=== PATIENT | female | born 1990 | race Two or more races ===

== ENCOUNTER 2016-08-22 08:08 | Inpatient (IN) | payer OTHER ==
[2016-08-22] MEDS ORDERED: OXYTOCIN 10 UNITS/ML VIAL IM ONE (08:45)
[2016-08-22] MEDS ORDERED: LIDOCAINE Viscous 2% 15 ML UDCUP ONE (08:50)
[2016-08-22] MEDS ORDERED: MINERAL OIL 25 ML BOT ONE (08:50)
[2016-08-22] MEDS ORDERED: LIDOCAINE 1% (PRES FREE) 30 ML VIAL ONE (08:50)
[2016-08-22] MEDS ORDERED: PUMP TUBING ONE (08:50)
[2016-08-22] MEDS ORDERED: OXYTOCIN IN LR 500 ML IV ONE ×3 (08:50→15:33)
[2016-08-22 09:16] VITALS: BMI 30.8
--- NOTE | 2016-08-22 10:14 | PCMAN ---
OB Admission Note - History : 3 Term: 2 : 0 Abortions (S&E): 0 Livin EDC:: 08/22/16 Gestational Age (weeks): 40 Days (#/7): 0 Admit Cervical Dilation:: 7 Admit Cervical Effacement (%):: 80 Admit Station:: -2 Admit Presentaton:: vertex Membrane Status: Intact Labor Onset (Date): 08/22/16 Labor Onset (Time): 03:00 Contraction Frequency:: 1.5-5 minutes Heart Rate:: 125 (moderate variability, pos accels, no decels) Status:: Fetus Cat 1 EFW:: 7lbs Summary of Course:: Val is a at 40w0d presenting with active labor at term. She initiated care with [facility] at 6wks for 2 visits, and transferred to [facility] at 19 weeks for a total of 11 visits. Her course was uncomplicated. Her 20 week anatomy scan was WNL. Her initial BMI was 25 with a total WG of 33 lbs this . She passed her 1hr GTT. Her GBS status is negative. Did not have genetic testing. 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 - Labs Blood Type: O (+) positive Rubella Status: Immune GBS Status: Negative Abnormal Labs: None - Review of Systems Complete ROS is negative excpet for lower abdominal pain described as contractions. She denies LIANG, visual changes, epigastric pain. She denies LOF and vag bleeding. - Physical Exam Psych/Mental Status: Mood/Affect Appropriate, Judgment/Insight Intact Neurological: Grossly Intact, Alert, Oriented x 4 HEENT: Atraumatic Lungs: Clear to Auscultation Bilaterally, Normal Air Movement Cardiovascular: Regular Rate and Rhythm, Normal S1, Normal S2 Genitourinary: Normal Female Genitalia Rectal Exam: Deferred Extremities: Full ROM Skin: Normal Color, Warm, Dry (Fetus ROP by Leop[place]) - Problems (1) Active labor at term Status: Acute Code: [id number]/Plan: A: Undelivered IUP at 40w0d Membranes intact GBS negative Active labor Fetus Cat 1, appropriate for IA VSS Coping very well P: Patient desires unmedicated No Hx PPH or difficult delivery. Patient declined AMTSL, 10 mu IM ordered in case risk factors emerge IA per unit protocol Monitor vital signs per unit protocol Has ball in room, plans to use positions, and movement. Will increase RN and CNM hands on support as labor intensifies. Will reassess when clinically indicated. Anticipate .
--- NOTE | 2016-08-22 12:10 | PDOC36 ---
Provider Note Subject: Labor progress Note Note: S: Patient asks to be checked and evaluated for AROM. She states she is coping well. O: VS BP 130/69 HR 71 T 36.2C Fetus 120's increases auscultated with IA, no decreases Ctx coupling q 1-5 mins, lasting 60 - 120 sec, moderate to strong to palpation SVE unchanged 7/80%/-2, vertex not well-applied to cervix, ROT A: Undelivered IUP at 40w0d Membranes intact GBS negative Active labor Fetus Cat 1, appropriate for IA VSS Coping very well malsposition P: Patient desires unmedicated Patient declined AMTSL, 10 mu IM ordered in case risk factors emerge IA per unit protocol Monitor vital signs per unit protocol Slide-lying release, rebozo, lunges and abdominal lift to assist with rotation and descent of fetus. After sile lying release, back noted to be shifted more to the maternal left. Will consider AROM once fetus is in better position for descent. Will reassess when clinically indicated. Anticipate .
[2016-08-22] MEDS ORDERED: SODIUM CHLORIDE 0.9% FLUSH 10 ML ONE (15:07)
[2016-08-22] MEDS ORDERED: MISOPROSTOL 200 MCG TABLET PO ONE (15:08)
[2016-08-22] MEDS ORDERED: FENTANYL 100 MCG/2 ML VIAL IV ONE (15:08)
[2016-08-22] MEDS ORDERED: FENTANYL 100 MCG/2 ML VIAL ONE (15:11)
[2016-08-22] MEDS ORDERED: CEFAZOLIN SODIUM 2 GRAM DUPLEX 50 ML IV ONE ×2 (15:24→16:24)
[2016-08-22 15:30] LABS: HEMATOCRIT 35.9 % (37.0-47.0); HEMOGLOBIN 12.8 gm/l (12.0-16.0); MEAN CELL VOLUME 91.1 fl (81.0-99.0); MEAN CORPUSCULAR HEMOGLOBIN 32.5 pg (27.0-31.0); MEAN CORPUSCULAR HGB CONC 35.7 g/dl (33.0-37.0); RED CELL DISTRIBUTION WIDTH 13.2 % (11.5-14.5)
[2016-08-22] MEDS ORDERED: METHYLERGONOVINE MALEATE 0.2 MG/ML 1ML AMP IM ONE (15:30)
[2016-08-22] MEDS ORDERED: LANOLIN 50 APPLIC/7G TUBE TP PRN (15:58)
[2016-08-22] MEDS ORDERED: BENZOCAINE/MENTHOL 60 APPLIC/BOT TP PRN (15:58)
[2016-08-22] MEDS ORDERED: CALCIUM CARBONATE 500 MG TAB.CHEW PO PRN (15:58)
[2016-08-22] MEDS ORDERED: MAGNESIUM HYDROXIDE 30 ML UDCUP PO PRN (15:58)
[2016-08-22] MEDS ORDERED: ACETAMINOPHEN 325 MG TABLET PO PRN (15:58)
[2016-08-22] MEDS ORDERED: HYDROCODONE/ACETAMINOPHEN 5/325MG TABLET PO PRN (15:58)
[2016-08-22] MEDS ORDERED: FLU VACC 2016-17 (36MO-64Y)/PF 60 MCG/0.5 ML SYRINGE IM V ONE (16:26)
[2016-08-22] MEDS ORDERED: ACETAMINOPHEN 500 MG TABLET PO ONE (16:41)
[2016-08-22] MEDS: LACTATED RINGERS 1,000 ML IV SCH ×2 (17:09→19:14)
--- NOTE | 2016-08-22 17:31 | PCMDEL ---
Delivery Note - Labor 1st stage (hr/min):: 11hrs 10mins 2nd stage (hr/min):: 19mins 3rd stage (hr/min):: 9 mins Total (hr/min):: 11hrs 29 mins Pushed (hr/min):: 19mins - Delivery Delivery (Date): 08/22/16 Delivery (Time): 14:29 Infant Gender: Male Weight: 6 lb 15 oz Presentation: Cephalic Position: OA (to ROT) Umbilical Cord: 3 Vessel Delayed Cord Clamping:: > 3 min 1 Minute Total: 9 5 Minute Total: 9 Placenta:: grossly intact, shultze, 3VC EBL:: 780 Perineum:: intact Suture:: none Anesthesia/Meds:: none for delivery. 100mcg fentanyl for uterine sweep Length ROM:: 50min Comments:: First Stage: Val presented at 0800 this morning in active labor. Her contractions began last night around 2200 and increased their intensity at 0300. At 0800 she was 7/80%/-2. She labored well throughout the morning at 11am, SVE remained unchanged and fetus was still -2 in ROT position. Side lying release, rebozo, lunges and abdominal lifting resulted in fetus becoming much more applied to the cervix and variable from ROT to RENEE during exam. At 1339 AROM was performed with meconium stained amniotic fluid and head became well-applied, 9/100%/-1. Val continued to cope very well with labor. FHTs remained Cat 1 throughout first stage labor. Change from IA to CEFM when meconium noted on AROM. Second Stage: Val noticed increased pressure, frequency of contractions and intensity of contractions after AROM. She was noted to be complete at 1410. She pushed well in a right side-lying position, noting good descent with each contraction. FHTs were Cat2 throughout second stage for variable decels to 100s with contractions that returned quickly to baseline. Always with moderate variability. of vigorous female at 1429 OA to ROT, no nuchal cord. Anterior shoulder delivered easily with next push, body followed easily. Apgars 9,9 Weight 6lbs 15oz. Perinuem and vaginal vault inspected and found to be intact. Third Stage: 3V cord clamped and cut at 3 mins by Pedro. Placenta delivered grossly intact and Shultze 8 minutes after the with a moderate gush. Fundus massaged and more bleeding was noted. 10 mu IM Pitocin given in L thigh. Fundus massaged and found firm and below the U. With the first fundal check, a 125cc clot was expelled. 600mcg misoprostol was given and bleeding seemed stable. At next fundal check, I was called back in as RN noted another 90mL clot at this time. Uterus felt firm, below the U but deviated to the right. Straight cath was done and 30cc urine was expelled. was held by Pedro, the father , at this time. IV access was obtained, IV Pitocin was initiated. Once IV access was obtained, fundal massage was done and more bleeding noted. 100mcg fentanyl was given and a manual uterine sweep was performed with removal of 240mL of clots. 0.2mg methergine given IM to firm up lower uterine segment. After manual sweep fundus noted very firm, below the U and now midline. 2g ancef ordered x1. About 2 hours after delivery, patient had a fever of 103F, likely from SL misoprostol. 1000mg tylenol given. 1000mL fluid bolus given. Total EBL + QBL 780mL. Infant was then replaced skin to skin and initiated. Stable and bonding well. Post delivery pause done and correct.
[2016-08-22] MEDS: IBUPROFEN 800 MG TABLET PO PRN (19:33)
[2016-08-23 06:44] LABS: HEMATOCRIT 29.8 % (37.0-47.0); HEMOGLOBIN 10.6 gm/l (12.0-16.0)
[2016-08-23] MEDS: LACTATED RINGERS 1,000 ML IV SCH (07:09)
[2016-08-23] MEDS: IBUPROFEN 800 MG TABLET PO PRN ×2 (10:31→17:53)
--- NOTE | 2016-08-23 15:26 | PDOC44 ---
- Subjective Day: 1 (Stable s/p , PPH) S:sitting up , reports feeling good while up ad paulette to void, feels much better after recovery from PPH and side effects of SL misoprostol. Reports bleeding is minimal and pain is controlled with ibuprofen. She desires to go home tomorrow. Handout given and reasons to call CNM were reviewed. Reports Flatus, Reports Pain Tolerable, Reports , Reports Lochia Light, Reports Tolerating Regular Diet - Objective Temp Pulse Resp BP Pulse Ox 98.1 F 91 16 107/58 08/23/16 08:28 08/23/16 08:28 08/23/16 08:28 08/23/16 08:28 Lab Results 08/23/16 08/22/16 06:20 15:20 WBC 16.2 H RBC 3.94 L Hgb 10.6 L D 12.8 Hct 29.8 L 35.9 L Plt Count 171 08/22/16 15:20 MCH 32.5 H Current Medications Generic Name Dose Route Start Last Admin Trade Name Freq PRN Reason Stop Dose Admin Acetaminophen 325 - 650 mg 08/22/16 15:58 Tylenol PO Q4H PRN Pain (Mild) Acetaminophen/Hydrocodone Bitart 1 - 2 tab 08/22/16 15:58 [place] 5/325 PO Q4H PRN Pain (Moderate) Benzocaine/Menthol 1 applic 08/22/16 15:58 Dermoplast TP PRN PRN Patient Comfort Calcium Carbonate/Glycine 500 - 1,000 mg 08/22/16 15:58 Tums PO BID PRN Indigestion Docusate Sodium 100 mg 08/23/16 09:00 Colace PO DAILY LORA Emollient Ointment 1 applic 08/22/16 15:58 [id number] TP PRN PRN sore nipples Ibuprofen 800 mg 08/22/16 15:58 08/23/16 10:31 Motrin PO 800 mg Q6H PRN Administration Pain (Mild) Magnesium Hydroxide 30 ml 08/22/16 15:58 Milk Of Magnesia PO BEDTIME PRN Constipation Sodium Chloride 10 ml 08/22/16 15:58 Normal Saline 10ml Flush IV PRN PRN IV Flush - Physical Exam General: Afebrile (VSS) Psych/Mental Status: Mood/Affect Appropriate, Judgment/Insight Intact, Bonding Well Neurological: Grossly Intact, Alert, Oriented x 4, Normal Speech Lungs: Clear to Auscultation Bilaterally Cardiovascular: Regular Rate and Rhythm Breast: Soft, Skin intact, Nipples Intact Fundus: Firm, Midline, Below Umbilicus Lochia: Light - Problems:Assessment/Plan (1) (normal spontaneous vaginal delivery) Status: AcuteAssessment/Plan: A: PPD #1 s/p , PPH VSS, asymptomatic Exclusive Up ad paulette,stable Routine recovery P: Discharge handout given Anticipate discharge tomorrow Disposition: Anticipate DC Home Tomorrow
[2016-08-23] MEDS: DOCUSATE SODIUM 100 MG CAPSULE PO SCH (17:53)
--- NOTE | 2016-08-24 09:14 | PDOC39B ---
Hospital Course: ADMIT DATE: 08/22/16 DISCHARGE DATE: 08/24/2016 ADMISSION DIAGNOSES: Active Labor PROCEDURES: HISTORY OF PRESENT ILLNESS: 26 year old G3 T2 L2 at 40 weeks 0 days presenting with active labor. HOSPITAL COURSE: The patient is ambulating and voiding without difficulty. Pain well managed with Ibuprofen. Bleeding light. exclusively without difficulty. Happy with experience. Planning discharge home today. No hx of depression. Good support from spouse. By day of discharge the patient is stable, well and ready to go home. - Physical Exam Vital Signs: Temp Pulse Resp BP Pulse Ox 97.9 F 77 16 90/52 08/24/16 02:07 08/24/16 02:07 08/24/16 02:07 08/24/16 02:07 General: Afebrile, No Acute Distress Psych/Mental Status: Mood/Affect Appropriate, Judgment/Insight Intact, Bonding Well Neurological: Grossly Intact, Alert, Oriented x 4 Breast: Soft, Skin intact, Nipples Intact, No Tenderness, No Erythema Fundus: Firm, Midline, Below Umbilicus Genitourinary: Normal Female Genitalia, No Edema Lochia: Light Extremities: Full ROM, Edema (trace) - Discharge Plan Condition: Good Disposition: Home Additional Instructions: Handout given and reviewed in Serbian Prescriptions: Ibuprofen [Motrin] 800 mg PO Q6H PRN #60 tablet PRN Reason: Pain Follow-Up: Rambo Islas CNM [Certified Nurse Vault Clerk] - 09/05/16 1:00 pm
[2016-08-24 09:32] VITALS: BP 93/54
[2016-08-24] MEDS: DOCUSATE SODIUM 100 MG CAPSULE PO SCH (11:40)
[2016-08-24] MEDS ORDERED: LACTATED RINGERS 1,000 ML ONE (13:00)
[2016-08-24] MEDS ORDERED: IV START KIT ONE (13:00)
== END 2016-08-24 12:28 | disposition home or self-care (01) | DRG 774 ==
LOC: FBC 08:08 → FBCOUT 08:08 → FBC 08:38
PROVIDERS: ADMIT Advanced Practice Midwife; ATTEND Licensed Practical Nurse
PROC: 10E0XZZ Delivery of Products of Conception, External Approach (ICD-10-PCS; principal; 2016-08-22)
PROC: 10907ZC Drainage of Amniotic Fluid, Therapeutic from Products of Conception, Via Natural or Artificial Opening (ICD-10-PCS; 2016-08-22)
DX: O99.344 Other mental disorders complicating childbirth (principal); O86.4 Pyrexia of unknown origin following delivery; F32.9 Major depressive disorder, single episode, unspecified; Z3A.40 40 weeks gestation of pregnancy; Z37.0 Single live birth; O77.0 Labor and delivery complicated by meconium in amniotic fluid